=== PATIENT | male | born 1950 | race Two or more races ===

== ENCOUNTER 2021-09-04 10:00 | Inpatient (IN) | payer OTHER ==
[~2021-09-04] VITALS: Ht 175.3 cm; Wt 77.1 kg
[2021-09-04] MEDS ORDERED: GLUMETZA500 MG PO (12:30)
[2021-09-04] MEDS ORDERED: ZESTRIL40 M1 PO (12:30)
[2021-09-04] MEDS ORDERED: SINVASTATIN PO (12:31)
[2021-09-08] MEDS ORDERED: SIMVASTATIN10 MG PO (07:25)
== END 2021-09-16 11:52 | disposition home or self-care (01) | DRG 331 ==
LOC: SURG 09-08 06:08 → O/R 09-08 06:08 → SURH 09-08 07:00 → SURG 09-08 21:48
PROVIDERS: Urology; ADMIT Colon & Rectal Surgery; ATTEND Colon & Rectal Surgery
PROC: 07TC4ZZ Resection of Pelvis Lymphatic, Percutaneous Endoscopic Approach (ICD-10-PCS; 2021-09-08)
PROC: 0T788DZ Dilation of Bilateral Ureters with Intraluminal Device, Via Natural or Artificial Opening Endoscopic (ICD-10-PCS; 2021-09-08)
PROC: 0DJD8ZZ Inspection of Lower Intestinal Tract, Via Natural or Artificial Opening Endoscopic (ICD-10-PCS; 2021-09-08)
PROC: 0D1B4Z4 Bypass Ileum to Cutaneous, Percutaneous Endoscopic Approach (ICD-10-PCS; principal; 2021-09-08 07:00)
PROC: 0DTP4ZZ Resection of Rectum, Percutaneous Endoscopic Approach (ICD-10-PCS; 2021-09-08 07:00)
PROC: BT43ZZZ Ultrasonography of Bilateral Kidneys (ICD-10-PCS; 2021-09-12)
PROC: BW21ZZZ Computerized Tomography (CT Scan) of Abdomen and Pelvis (ICD-10-PCS; 2021-09-15)
DX: C20 Malignant neoplasm of rectum (principal); D49.89 Neoplasm of unspecified behavior of other specified sites; Z20.822 Contact with and (suspected) exposure to COVID-19

== ENCOUNTER 2021-09-28 23:01 | Inpatient (IN) | payer OTHER ==
[~2021-09-28] VITALS: Ht 175.3 cm; Wt 69.9 kg
[~2021-09-28 23:01] MED LIST: GLUMETZA500 MG PO; SIMVASTATIN10 MG PO; SINVASTATIN PO; ZESTRIL40 M1 PO
== END 2021-10-06 14:03 | disposition home or self-care (01) | DRG 683 ==
LOC: ER 23:01 → ICU 09-29 14:05 → SEC-K 09-29 14:05 → ICU 09-29 21:24 → SURH 10-03 18:27
PROVIDERS: ADMIT Colon & Rectal Surgery; ATTEND Colon & Rectal Surgery
PROC: B24BZZZ Ultrasonography of Heart with Aorta (ICD-10-PCS; 2021-09-29)
PROC: 02HV33Z Insertion of Infusion Device into Superior Vena Cava, Percutaneous Approach (ICD-10-PCS; 2021-09-30)
PROC: BW21ZZZ Computerized Tomography (CT Scan) of Abdomen and Pelvis (ICD-10-PCS; 2021-10-02)
PROC: 4A12X4Z Monitoring of Cardiac Electrical Activity, External Approach (ICD-10-PCS; principal; 2021-10-03)
DX: N17.8 Other acute kidney failure (principal); N13.8 Other obstructive and reflux uropathy; C20 Malignant neoplasm of rectum; K61.1 Rectal abscess; K81.0 Acute cholecystitis; E86.0 Dehydration; N18.30 Chronic kidney disease, stage 3 unspecified; E87.5 Hyperkalemia; R33.8 Other retention of urine; I48.91 Unspecified atrial fibrillation; E03.8 Other specified hypothyroidism; I12.9 Hypertensive chronic kidney disease with stage 1 through stage 4 chronic kidney disease, or unspecified chronic kidney disease; E11.22 Type 2 diabetes mellitus with diabetic chronic kidney disease; Z79.4 Long term (current) use of insulin; Z20.822 Contact with and (suspected) exposure to COVID-19; Z93.2 Ileostomy status

== ENCOUNTER 2022-02-21 05:45 | Day surgery (SDC) | payer OTHER | END 2022-02-21 10:55 | disposition home or self-care (01) | LOC: AMB-ENDOS 05:45 | PROVIDERS: ATTEND Colon & Rectal Surgery | DX: C20 Malignant neoplasm of rectum (principal); Z20.822 Contact with and (suspected) exposure to COVID-19; I10 Essential (primary) hypertension; Z93.2 Ileostomy status ==

== ENCOUNTER 2022-06-11 10:00 | Inpatient (IN) | payer OTHER ==
[~2022-06-11] VITALS: Ht 175.3 cm; Wt 65.3 kg
[~2022-06-11 10:00] MED LIST changes: -PEPCID AC20 MG PO
[2022-06-11] MEDS ORDERED: PEPCID AC20 MG PO (11:52)
[2022-06-26] MEDS ORDERED: PANTOPRAZOLE SO40 MG (11:38)
[2022-06-26] MEDS ORDERED: TAMSULOSIN HCL0.4 MG (11:38)
[2022-06-26] MEDS ORDERED: FINASTERIDE5 MG (11:38)
[2022-06-26] MEDS ORDERED: LISINOPRIL40 MG (11:38)
== END 2022-07-02 17:23 | disposition home or self-care (01) | DRG 330 ==
LOC: SURG 06-18 07:00 → O/R 06-18 08:30 → SURH 06-18 08:30 → SURG 06-18 10:00 → SURH 06-18 16:05 → SURG 06-19 07:42 → SURH 06-19 07:47 → O/R 06-20 15:15 → SURH 06-20 15:19
PROVIDERS: ADMIT Colon & Rectal Surgery; ATTEND Colon & Rectal Surgery
PROC: BW21ZZZ Computerized Tomography (CT Scan) of Abdomen and Pelvis (ICD-10-PCS; 2022-06-25)
PROC: 0DT84ZZ Resection of Small Intestine, Percutaneous Endoscopic Approach (ICD-10-PCS; principal; 2022-06-28)
PROC: 0DBB4ZZ Excision of Ileum, Percutaneous Endoscopic Approach (ICD-10-PCS; 2022-06-28)
PROC: 02HV33Z Insertion of Infusion Device into Superior Vena Cava, Percutaneous Approach (ICD-10-PCS; 2022-06-28)
PROC: 30233N1 Transfusion of Nonautologous Red Blood Cells into Peripheral Vein, Percutaneous Approach (ICD-10-PCS; 2022-06-28)
DX: Z43.2 Encounter for attention to ileostomy (principal); C20 Malignant neoplasm of rectum; D62 Acute posthemorrhagic anemia; K56.7 Ileus, unspecified; K91.89 Other postprocedural complications and disorders of digestive system; T81.49XA Infection following a procedure, other surgical site, initial encounter; D63.1 Anemia in chronic kidney disease; I12.9 Hypertensive chronic kidney disease with stage 1 through stage 4 chronic kidney disease, or unspecified chronic kidney disease; E11.22 Type 2 diabetes mellitus with diabetic chronic kidney disease; N18.30 Chronic kidney disease, stage 3 unspecified; Z79.4 Long term (current) use of insulin; Z20.822 Contact with and (suspected) exposure to COVID-19

== ENCOUNTER → 2022-06-11 | Outpatient (CLI) | payer OTHER ==
[~2022-06-11] MED LIST changes: +PEPCID AC20 MG PO
== END | disposition home or self-care (01) ==
LOC: RAD 09:58
PROVIDERS: ATTEND Colon & Rectal Surgery
DX: K59.00 Constipation, unspecified (principal); N39.0 Urinary tract infection, site not specified; K62.5 Hemorrhage of anus and rectum; D59.8 Other acquired hemolytic anemias; Z11.59 Encounter for screening for other viral diseases; Z20.828 Contact with and (suspected) exposure to other viral communicable diseases; D68.9 Coagulation defect, unspecified; C20 Malignant neoplasm of rectum

== ENCOUNTER 2024-07-06 05:33 | Inpatient (IN) | payer OTHER ==
[~2024-07-06] VITALS: Ht 154.9 cm; Wt 68.0 kg
[~2024-07-06 05:33] MED LIST changes: +FINASTERIDE5 MG; +LISINOPRIL40 MG; +PANTOPRAZOLE SO40 MG; +PEPCID AC20 MG PO; +TAMSULOSIN HCL0.4 MG
--- NOTE | 2024-07-06 05:52 | NUR ---
SE RECIBE PTE ALERTA Y ORIENTADO EL CUAL REFIERE VENIR POR REFERIDO DE DRA. RHETT TONEY PARA REALIZAR PROCEDIMIENTO DE ESTOMA. SE MIDEN S/V A PTE Y SE UBICA.
[2024-07-06] MEDS ORDERED: RINGERS SOLUTION,LACTATED 1,000 ML IV ONE (07:15)
[2024-07-06 07:30] LABS: HEMATOCRIT 38.2 % (39.0-48.0); HEMOGLOBIN 12.9 g/dL (13-16.00); MEAN CELL VOLUME 96.1 fL (80.0-100.00); MEAN CORPUSCULAR HEMOGLOBIN 32.4 pg (27.00-32.0); MEAN CORPUSCULAR HGB CONC 33.7 g/dl (32.0-36.0); PLATELET COUNT 183 K/uL (150-450); RED BLOOD COUNT 3.97 M/uL (4.00-6.00)
--- NOTE | 2024-07-06 07:57 | NUR ---
SE RECIBE PTE MASCUKLINO DE 74 YRS ALERTA CONCIENTE Y TRANQUILO EN COMPANIA DE FAMILIAR. PTE ES EVALUADO POR EL DR,LUZ QUIE ORDENA TRATAMIENTO LA CUAL SE EJECUTA.
[2024-07-06 07:59] LABS: INR 1.05; PARTIAL THROMBOPLASTIN TIME 27.9 SECONDS (22.0-34.0); PROTHROMBIN TIME 11.4 SECONDS (9.0-11.5)
[2024-07-06 08:01] LABS: ALBUMIN 3.2 gm/dL (3.4-5.0); BILIRUBIN TOTAL 0.33 mg/dL (0.3-1.2); CALCIUM 9.9 mg/dL (8.5-10.1); CREATININE SERUM 1.16 mg/dL (0.70-1.30); GFR 61.38; POTASSIUM 3.66 mEq/L (3.5-5.1); TOTAL PROTEIN 7.2 gm/dL (6.4-8.2)
[2024-07-06 08:14] LABS: PH,URINE 5.5 (5.0-8.0); URINE APPEARANCE Cloudy; URINE BILIRRUBIN Negative (NEGATIVE); URINE BLOOD Large; URINE COLOR Yellow; URINE GLUCOSE Negative (NEGATIVE); URINE KETONE Negative (NEGATIVE); URINE LEUKOCYTE Moderate; URINE NITRATE Negative; URINE UROBILINOGEN 0.2 E.U./dl
[2024-07-06 08:15] LABS: URINE BACTERIA 892.2 uL (0.0-1933); URINE CAST 2.94 uL (0.0-1.40); URINE EPITHELIAL CELLS 3.7 uL (0.0-38.8); URINE RBC 808.1 uL (0.0-20.8); URINE WBC 619.2 uL (0.0-23.2)
[2024-07-06 08:27] LABS: URINE PROTEIN 300 (NEGATIVE)
[2024-07-06] MEDS ORDERED: MEROPENEM 500 MG/VIAL VIAL IV STA (09:02)
[2024-07-06] MEDS ORDERED: RINGERS SOLUTION,LACTATED 1,000 ML IV SCH (09:15)
[2024-07-06] MEDS ORDERED: MORPHINE SULFATE 4 MG/ML VIAL IV PRN (09:15)
[2024-07-06] MEDS ORDERED: ONDANSETRON HCL 2 MG/ML VIAL IV PRN (09:15)
[2024-07-06] MEDS ORDERED: MORPHINE SULFATE 4 MG/ML CARTRIDGE IV PRN (09:30)
[2024-07-06 10:03] VITALS: BP 130/78
[2024-07-06] MEDS ORDERED: MEROPENEM 500 MG/VIAL VIAL IV SCH (17:00)
[2024-07-06] MEDS ORDERED: PHYTONADIONE 10 MG/ML AMPUL IV ONE (18:15)
[2024-07-06] MEDS ORDERED: ENALAPRILAT DIHYDRATE 1.25 MG/ML VIAL IV PRN (20:00)
[2024-07-06] MEDS ORDERED: OxyCODONE HCL/APAP UD (PERCOCET) PO PRN (20:00)
[2024-07-06] MEDS ORDERED: DEXTROSE 50 % IN WATER 0.5 G/ML DISP.SYRIN IV PRN (20:00)
[2024-07-06] MEDS ORDERED: INSULIN LISPRO 1,000 UNIT/10 ML UNITS SUBCUTANEO PRN (20:00)
[2024-07-06] MEDS ORDERED: FAMOTIDINE/PF 20 MG/2 ML VIAL IV SCH (21:00)
[2024-07-06] MEDS ORDERED: GABAPENTIN 100 MG CAPSULE PO SCH (21:00)
[2024-07-06 21:59] LABS: HEMATOCRIT 38.3 % (39.0-48.0); HEMOGLOBIN 13.1 g/dL (13-16.00); MEAN CELL VOLUME 96.6 fL (80.0-100.00); MEAN CORPUSCULAR HEMOGLOBIN 32.9 pg (27.00-32.0); MEAN CORPUSCULAR HGB CONC 34.1 g/dl (32.0-36.0); PLATELET COUNT 174 K/uL (150-450); RED BLOOD COUNT 3.96 M/uL (4.00-6.00); RED CELL DISTRIBUTION WIDTH 14.8 % (11.5-14.5)
[2024-07-06 22:22] LABS: ALBUMIN 3.2 gm/dL (3.4-5.0); CALCIUM 9.5 mg/dL (8.5-10.1); CREATININE SERUM 0.89 mg/dL (0.70-1.30); GFR 83.33; PHOSPHOROUS 3.6 mg/dL (2.5-4.9); POTASSIUM 3.8 mEq/L (3.5-5.1)
[2024-07-06 22:23] LABS: MAGNESIUM 1.4 mg/dL (1.8-2.4)
[2024-07-07 03:44] VITALS: BP 115/54; O2SAT 98
[2024-07-07 07:08] LABS: HEMATOCRIT 34.9 % (39.0-48.0); MEAN CELL VOLUME 96.3 fL (80.0-100.00); MEAN CORPUSCULAR HEMOGLOBIN 33.2 pg (27.00-32.0); MEAN CORPUSCULAR HGB CONC 34.5 g/dl (32.0-36.0); PLATELET COUNT 146 K/uL (150-450); RED BLOOD COUNT 3.62 M/uL (4.00-6.00)
[2024-07-07] MEDS ORDERED: ACETAMINOPHEN 500 MG GEL..CAP PO SCH (07:53)
[2024-07-07] MEDS ORDERED: OxyCODONE HCL 5 MG TABLET (ROXICODONE) PO PRN (08:00)
[2024-07-07 08:15] VITALS: BP 129/68; O2SAT 97
[2024-07-07 08:23] LABS: ALBUMIN 2.6 gm/dL (3.4-5.0); CALCIUM 8.8 mg/dL (8.5-10.1); CREATININE SERUM 0.96 mg/dL (0.70-1.30); GFR 76.36; PHOSPHOROUS 3.8 mg/dL (2.5-4.9); POTASSIUM 4.04 mEq/L (3.5-5.1)
[2024-07-07] MEDS ORDERED: MAGNESIUM SULFATE IN WATER 2 GM/50 ML PIGGYBAG IV NR (08:44)
[2024-07-07] MEDS ORDERED: FINASTERIDE 5 MG TABLET PO SCH (09:00)
[2024-07-07] MEDS ORDERED: CARVEDILOL 6.25 MG TABLET PO SCH (09:00)
[2024-07-07] MEDS ORDERED: HYDROCHLOROTHIAZIDE 25 MG TABLET PO SCH (09:00)
[2024-07-07] MEDS ORDERED: FAMOtidine 20 MG TABLET PO SCH (09:00)
[2024-07-07] MEDS ORDERED: LOSARTAN POTASSIUM 100 MG TABLET PO SCH (09:00)
[2024-07-07] MEDS ORDERED: AMLODIPINE BESYLATE 10 MG TABLET PO SCH (09:00)
[2024-07-07 16:00] VITALS: BP 123/70; O2SAT 99
[2024-07-07] MEDS ORDERED: POLYETHYLENE GLYCOL 3350 17 GM BLIST.PACK PO SCH (17:00)
[2024-07-07] MEDS ORDERED: SIMVASTATIN 10 MG TABLET PO SCH (17:00)
[2024-07-07] MEDS ORDERED: ENOXAPARIN SODIUM 40 MG/0.4 ML SYRINGE SUBCUTANEO SCH (17:00)
[2024-07-08 00:16] VITALS: BP 106/63; O2SAT 95
[2024-07-08 08:00] VITALS: BP 131/63; O2SAT 96
[2024-07-08 08:47] LABS: ALBUMIN 2.5 gm/dL (3.4-5.0); CALCIUM 9.3 mg/dL (8.5-10.1); CREATININE SERUM 1.1 mg/dL (0.70-1.30); GFR 65.26; MAGNESIUM 1.5 mg/dL (1.8-2.4); PHOSPHOROUS 3.1 mg/dL (2.5-4.9); POTASSIUM 3.99 mEq/L (3.5-5.1)
[2024-07-08] MEDS ORDERED: MAGNESIUM CHLORIDE 70 MG TABLET.DR PO SCH (09:08)
[2024-07-08] MEDS ORDERED: MAGNESIUM SULFATE IN WATER 2 GM/50 ML PIGGYBAG IV NR (10:00)
[2024-07-08] MEDS ORDERED: NAPH,MB-DB/K PH,MBDB 1 PKT PACKET PO SCH (17:00)
== END 2024-07-08 17:50 | disposition home or self-care (01) | DRG 330 ==
LOC: ER 05:35 → SURH 09:19 → SEC-K 09:19 → O/R 14:07 → SURH 23:38
PROVIDERS: General Practice; ADMIT Colon & Rectal Surgery; ATTEND Colon & Rectal Surgery
PROC: 0DQL0ZZ Repair Transverse Colon, Open Approach (ICD-10-PCS; 2024-07-06)
PROC: 0DBL0ZZ Excision of Transverse Colon, Open Approach (ICD-10-PCS; 2024-07-06)
PROC: 0D1E0Z4 Bypass Large Intestine to Cutaneous, Open Approach (ICD-10-PCS; principal; 2024-07-06 14:45)
DX: K94.09 Other complications of colostomy (principal); D62 Acute posthemorrhagic anemia; I82.492 Acute embolism and thrombosis of other specified deep vein of left lower extremity; L02.416 Cutaneous abscess of left lower limb; K61.1 Rectal abscess; N17.9 Acute kidney failure, unspecified; T81.49XA Infection following a procedure, other surgical site, initial encounter; N39.0 Urinary tract infection, site not specified; I48.91 Unspecified atrial fibrillation; E86.0 Dehydration; R53.81 Other malaise; Z74.09 Other reduced mobility; F43.20 Adjustment disorder, unspecified; Y65.8 Other specified misadventures during surgical and medical care; Z20.822 Contact with and (suspected) exposure to COVID-19